=== PATIENT | male | born 1975 | race African-American/Black ===

== ENCOUNTER 2022-07-05 18:25 | Emergency (ER) | payer OTHER, SELFPAY ==
[2022-07-05 18:46] VITALS: BP 130/84; PULSE 86; RESP 18; TEMP 36.8; O2SAT 100
--- NOTE | 2022-07-05 20:39 | ED.SKABFB ---
HPI - Skin/Abscess/Foreign Bdy General Chief complaint: Skin/Abscess/Foreign Body <ADIA Hutchins Last Filed: 07/06/22 02:17> Stated complaint: rash on leg, chest, neck <ADIA Hutchins Last Filed: 07/06/22 02:17> Time Seen by Provider: 07/05/22 19:29 <ADIA Hutchins Last Filed: 07/06/22 02:17> Source: patient <ADIA Hutchins Last Filed: 07/06/22 02:17> Mode of arrival: ambulatory <ADIA Hutchins Filed: 07/06/22 02:17> Limitations: no limitations <ADIA Hutchins Filed: 07/06/22 02:17> History of Present Illness HPI narrative: Patient is a 46-year-old male who presents ED with report of a diffuse skin rash. Patient reports having a dry, pustular, pruritic, scaling rash to his back/shoulders, trunk, abdomen, arms and legs for the last 3 to 4 weeks. He states he first noticed an area of rash on his right lateral thigh, however the rash seems to be spreading. He has been on doxycycline, Keflex, prednisone, and been using calamine lotion and Cetaphil lotion with no significant relief. He does report the prednisone seem to help slightly. Patient has not seen a tubular stock glass bulb machine former. He has an appointment with his PCP next week. Denies any fevers, nausea, vomiting, pain, difficulty swallowing or breathing. Patient is a diabetic and states his blood sugars have been running around 120. <ADIA Hutchins Last Filed: 07/06/22 02:17> Related Data Allergies/Adverse reactions: Allergies Allergy/AdvReac Type Severity Reaction Status Date / Time No Known Allergies Allergy Verified 07/05/22 19:51 <ADIA Hutchins Last Filed: 07/06/22 02:17> Review of Systems Review of Systems: CONSTITUTIONAL: Denies fever, chills, or sweats. CARDIOVASCULAR: Denies chest pain. RESPIRATORY: Denies dyspnea. GASTROINTESTINAL: Denies abdominal pain, nausea, vomiting. SKIN: See HPI. MUSCULOSKELETAL: Denies back pain, joint pain, or myalgia. <Paola Isaac PA-C - Last Filed: 07/06/22 02:17> All systems reviewed & are unremarkable except as noted in HPI and below <Paola Isaac PA-C - Last Filed: 07/06/22 02:17> [facility] Past Medical History Medical History: Medical History (Updated 07/06/22 @ 02:07 by Paola Isaac PA-C) Diabetes mellitus <Paola Isaac PA-C - Last Filed: 07/06/22 02:17> Surgical History Surgical History: Surgical History (Updated 07/06/22 @ 02:07 by Paola Isaac PA-C) No pertinent past surgical history <Paola Isaac PA-C - Last Filed: 07/06/22 02:17> Social History Social History: Social History (Updated 07/06/22 @ 02:07 by Paola Isaac PA-C) Smoking status: Never smoker <Paola Isaac PA-C - Last Filed: 07/06/22 02:17> Exam Narrative: GENERAL: Well appearing, obese with BMI of 30, non-toxic, in no acute distress. HEAD: Normocephalic, atraumatic. EENT: No facial involvement of rash. NECK: Supple. No adenopathy, no masses. RESPIRATORY: Airway patent, respirations nonlabored. Clear to auscultation bilaterally, no rales, rhonchi, wheezing. CARDIOVASCULAR: Regular rate and rhythm without murmurs, rubs, or gallops. Radial pulses 2+ and equal bilaterally. MUSCULOSKELETAL: Moves all extremities. Strength/ROM intact without gross deformities. SKIN: Warm, dry, normal color. Scattered areas of dry, flaking, scaling skin across upper back and shoulders, trunk, abdomen, lower legs. Some lesions appear loosely circular. Larger area of skin excoriation and peeling with dry scaling skin, serous drainage to R lateral proximal thigh. No purulent drainage. Pinpoint erythematous papular lesions to bilateral flexor surfaces of upper extremities. No significant pustules. Does not appear to only involve hair follicles. No significant lesions on hands or along waistline. No petechiae or purpura. No bl
== END 2022-07-05 20:56 | disposition home or self-care (01) ==
PROVIDERS: Emergency Provider Physician Assistant
DX: L08.0 Pyoderma (principal); E11.9 Type 2 diabetes mellitus without complications
CPT/HCPCS: 99283

== ENCOUNTER 2023-05-03 13:27 | Outpatient (CLI) | payer OTHER, SELFPAY ==
--- NOTE | 2023-05-03 | ECG_ITS ---
Measurements Intervals [place] Rate: 67 P: 80 ND: 99 QRS: 22 QRSD: 133 T: 230 QT: 402 QTc: 426 Interpretive Statements SINUS RHYTHM WITH SHORT ND INTERVAL ATRIAL PREMATURE COMPLEX INTRAVENTRICULAR CONDUCTION DELAY LEFT VENTRICULAR HYPERTROPHY AND ST-T CHANGE CONSIDER INFERIOR INFARCT, AGE INDETERMINATE BASELINE WANDER- V4-V6 ABNORMAL ECG NO PREVIOUS ECG AVAILABLE FOR COMPARISON Electronically Signed On 05-03-2023 14:21:16 [employer] D[employer] by Braxton Williamson D.O.
== END 2023-05-03 13:28 | disposition home or self-care (01) ==
LOC: ANHCARD 13:30
PROVIDERS: Visit Provider Physician Assistant
DX: I45.6 Pre-excitation syndrome (principal); I45.9 Conduction disorder, unspecified
CPT/HCPCS: 93005